=== PATIENT | male | born 1940 | race Caucasian/White ===

== ENCOUNTER 2016-12-27 22:31 | Emergency (ER) | payer MEDICARE ==
[2016-12-28] MEDS ORDERED: DOXYcycline CAP(*) 100 MG PO ONE (00:51)
--- NOTE | 2016-12-28 12:35 | ED ---
Skin Complaint - HPI Summary HPI Summary: Patient presents to the with 2 tick bites. He noticed them today and states they have probably only been attached for less than 24 hours, but could have been up to 48. He denies any symptoms or pain. There is no EM rash. He wanted to assure he would not get lyme disease and make sure all the tick heads were removed and not still attached. He is otherwise healthy. Never dx with lyme disease. Denies joint aches and REESE. One is located on the left forearm, the other the left side of the back. - History of Current Complaint Chief Complaint: EDGeneral Time Seen by Provider: 12/28/16 00:11 Stated Complaint: TICK BITE Hx Obtained From: Patient Onset/Duration: Started Hours Ago Skin Exposure Onset/Duration: Hours Ago Timing: Constant Onset Severity: Mild Current Severity: None Pain Intensity: 0 Pain Scale Used: 0-10 Numeric Character: Redness Aggravating Symptom(s): Nothing Alleviating Symptom(s): Nothing Associated Signs & Symptoms: Negative Related History: Possible Reaction to: Insect PMH/Surg Hx/FS Hx/Imm Hx Previously Healthy: Yes - Immunization History Hx Pertussis Vaccination: No Immunizations Up to Date: Unable to Obtain/Confirm Infectious Disease History: Denies: Traveled Outside the [place] in Last 30 Days - Social History Occupation: Unemployed, Retired Lives: With Family Alcohol Use: None Hx Substance Use: No Substance Use Type: Reports: None Hx Tobacco Use: No Smoking Status (MU): Unknown if Ever Smoked Review of Systems Constitutional: Negative Eyes: Negative Cardiovascular: Negative Respiratory: Negative Positive: no symptoms reported, see HPI Positive: Other - small erytehmatous area of tick bite - (2) -see HPI Neurological: Negative All Other Systems Reviewed And Are Negative: Yes Physical Exam Triage Information Reviewed: Yes Vital Signs Reviewed: Yes Appearance: Positive: Well-Appearing, Well-Nourished Skin: Positive: Warm, Skin Color Reflects Adequate Perfusion, Other - small erytehmatous area of tick bite - (2) -see HPI Head/Face: Positive: Normal Head/Face Inspection Eyes: Positive: EOMI, JOSELYN, Conjunctiva Clear Neck: Positive: Supple, No Lymphadenopathy Respiratory/Lung Sounds: Positive: Clear to Auscultation, Breath Sounds Present Cardiovascular: Positive: RRR, Pulses are Symmetrical in both Upper and Lower Extremities Musculoskeletal: Positive: Normal, Strength/ROM Intact Neurological: Positive: Speech Normal Psychiatric: Positive: Normal AVPU Assessment: Alert - Milagros Coma Scale Coma Scale Total: 15 Course/Dx - Course Course Of Treatment: Patient presents to the ED with concern for lyme disease d/ t 2 tick bites. Small erytehmatous area of tick bite - (2) Never dx with lyme disease. One is located on the left forearm, the other the left side of the back. Denies joint aches and REESE. Discussed treatment options. I have encouraged a prophylactic dose of 200mg Doxycycline based on ISDA guidelines. I have discussed prophylaxis vs 2 week course. 2 week course is not recommended based on engorgement size, likely attached less than 36 hours, no signs of symptoms of lyme. One tick identified as a deer tick, the other a dog tick. ( patient brought both to ED for evaluation). Risks and benefits of starting the medciation vs. holding off were discussed with patient. I will give a prophylactic dose in the ED and prescribed 2 weeks doxycyline, which he will fill if he develops any symptoms. Instructions given on dispense of medication and patient is to follow up with PCP for any worsening symptoms and to obtain labwork if she chooses. No lab work obtained today d/t early findings. - Differential Diagnoses - Skin Complaint Differential Diagnoses: Tick Born Illness, Other - lyme - Diagnoses Provider Diagnoses: Tick bite Discharge - Discharge Plan Condition: Stable Disposition: HOME Prescriptions: DOXYcycline CAP(*) [DOXYcycline 100MG CAP(*)] 100 mg PO BID #28 cap Patient Education Materials: Lyme Disease (ED), Tick Bite (ED) Referrals: Manolo Wallis MD [Primary Care Provider] - Additional Instructions: Tick Bite: Approach to prophylaxis : According to the Infectious Diseases Society of [place] (IDSA) guidelines that recommend antibiotic prophylaxis only in patients who meet all of the following criteria: 1. Attached tick identified as an adult or nymphal I. scapularis tick (deer tick). 2. Tick is estimated to have been attached for 36 hours (by degree of engorgement or time of exposure). 3. Prophylaxis is begun within 72 hours of tick removal. Local rate of infection of ticks with B. burgdorferi is 20 percent if attached for over 48 hours (these rates of infection have been shown to occur in parts of [place], parts of the [facility], and parts of [place] and [place]). If you experience a tick and time of attachment is believed to be less than 36 hours, you may remove the tick with head intact and no need for prophylaxis. If over 36 hours, please come into [facility]. Prophylactic doxycycline is not recommended for ticks attached less than 36 hours.
== END 2016-12-28 01:11 | disposition home or self-care (01) ==
LOC: ED 23:34
DX: S40.862A Insect bite (nonvenomous) of left upper arm, initial encounter (principal); W57.XXXA Bitten or stung by nonvenomous insect and other nonvenomous arthropods, initial encounter; Y93.9 Activity, unspecified; Y92.9 Unspecified place or not applicable
CPT/HCPCS: 99282; A9270-GY